=== PATIENT | male | born 1955 | race Caucasian/White ===

== ENCOUNTER → 2021-09-09 15:09 | Outpatient (BNVA) | payer OTHER, SELFPAY | PROVIDERS: Visit Provider Surgery | DX: Z86.010 Personal history of colon polyps (principal) | CPT/HCPCS: 87635 ==

== ENCOUNTER 2021-09-12 07:11 | Day surgery (SDC) | payer OTHER, SELFPAY ==
[2021-09-12 07:53] VITALS: BP 175/96; PULSE 99; RESP 18; TEMP 36.1; O2SAT 99
--- NOTE | 2021-09-12 07:54 | W.PM.OPSFHP ---
Same Day Surgery H&P Indication for Procedure/HPI DATE OF PROCEDURE: September 12, 2021 CHIEF COMPLAINT/INDICATIONFOR SURGICAL PROCEDURE: Colon polyps PREOP DIAGNOSIS: History of colon polyps PLANNED PROCEDURE: Operation Date: 09/12/21 08:30 Proposed Procedures p Colonoscopy 48570 Z86.010(Not Applicable) - Bo Saleh MD 06/13/21 This is a pleasant 66 years old gentleman with history of colon polyps removed about 5 years ago.? Patient denies bleeding per rectum or history of colon cancer and is referred to my practice for surveillance colonoscopy 09/12/21 Patient comes today for surveillance ROS All systems have been reviewed negative except as per the above or per problem list Medications/Allergies* Home Medications Medication Instructions Recorded Confirmed Type Wixela Inhub 1 inh INHALATION BID 09/09/21 09/09/21 History aspirin 325 mg tablet 325 mg PO DAILY 09/09/21 09/12/21 History diltiazem HCl 300 mg capsule,24 300 mg PO DAILY 09/09/21 09/12/21 History hr,extended release (Tiadylt ER) hydrocortisone 2.5 % topical 1 applic TOPICAL DAILY 09/09/21 09/09/21 History ointment losartan 50 mg tablet 50 mg PO DAILY 09/09/21 09/09/21 History metformin 1,000 mg tablet 1,000 mg PO BID 09/09/21 09/09/21 History montelukast 10 mg tablet 10 mg PO DAILY 09/09/21 09/09/21 History multivitamin 1 tab PO DAILY 09/09/21 09/09/21 History tramadol 50 mg tablet 50 mg PO Q6H PRN 09/09/21 09/09/21 History triamterene 37.5 1 tab PO DAILY 09/09/21 09/09/21 History mg-hydrochlorothiazide 25 mg tablet Allergies/Adverse Reactions Allergy/AdvReac Type Severity Reaction Status Date / Time Penicillins Allergy Intermediate hands Verified 09/12/21 07:55 swell, itchy Pertinent History/Comorbid Conditions* Family History (Updated 06/13/21 @ 09:37 by Kalani Farrell MA) Diabetes Lung disease Cancer Hypertension Social History Smoking and tobacco status: former smoker Pertinent Exam Findings alert, oriented x 3, regular rate & rhythm and procedure specific exam findings (Abdominal examination nontender nondistended soft) Recommendations Surgery/Procedure today (Surveillance colonoscopy) Coding Level of Care Code Acute Boat Patcher Plastic for Gilberto Patel
[2021-09-12] MEDS: sodium chloride 0.9% 1,000 ML 30 ML IV (07:57)
--- NOTE | 2021-09-12 08:14 | ANES.PREANE2 ---
Pre-Anesthetic Assessment Height/Weight: Height 1.8 m Weight 190.509 kg Temp Pulse Resp BP Pulse Ox 97.0 F L 99 18 175/96 99 09/12/21 07:53 09/12/21 07:53 09/12/21 07:53 09/12/21 07:53 09/12/21 07:53 Preop Diagnosis: History of colon polyps Operation Date: 09/12/21 08:30 Proposed Procedures p Colonoscopy 73400 Z86.010(Not Applicable) - Bo Saleh MD Familial anesthetic complications: None Was Beta Khushi taken within 24 hours: N/A Was Clonidine taken within 24 hours: N/A Last intake: Intake Last Liquid Date 09/12/21 Last Liquid Time 22:30 Last Solid Date 09/10/21 Last Solid Time 18:30 Social No alcohol and No tobacco Exam alert, oriented x 3, clear to auscultation bilaterally and regular rate & rhythm (Slightly tachy) Airway Submandibular: within normal limits Cervical ROM: within normal limits Mallampati: Class II Dentition: chipped Pulmonary Sleep Apnea CV/HEM Hypertension Metabolic Diabetes Mellitus and Morbid Obesity Anesthetic Plan ASA status: 3 Anesthesia: General Risk of > 500 ml blood loss (7ml/kg in children): No Medications/Allergies Home Medications Medication Instructions Recorded Confirmed Last Taken Type Wixela Inhub 1 inh INHALATION BID 09/09/21 09/09/21 09/10/21 History aspirin 325 mg tablet 325 mg PO DAILY 09/09/21 09/12/21 09/10/21 History diltiazem HCl 300 mg capsule,24 300 mg PO DAILY 09/09/21 09/12/21 09/10/21 History hr,extended release (Tiadylt ER) hydrocortisone 2.5 % topical 1 applic TOPICAL DAILY 09/09/21 09/09/21 09/10/21 History ointment losartan 50 mg tablet 50 mg PO DAILY 09/09/21 09/09/21 09/10/21 History metformin 1,000 mg tablet 1,000 mg PO BID 09/09/21 09/09/21 09/10/21 History montelukast 10 mg tablet 10 mg PO DAILY 09/09/21 09/09/21 09/10/21 History multivitamin 1 tab PO DAILY 09/09/21 09/09/21 09/10/21 History tramadol 50 mg tablet 50 mg PO Q6H PRN 09/09/21 09/09/21 09/10/21 History triamterene 37.5 1 tab PO DAILY 09/09/21 09/09/21 09/10/21 History mg-hydrochlorothiazide 25 mg tablet Allergies Allergy/AdvReac Type Severity Reaction Status Date / Time Penicillins Allergy Intermediate hands Verified 09/12/21 07:55 swell, itchy Current Medications Generic Name Dose Route Start Last Admin Trade Name Freq PRN Reason Stop Dose Admin Sodium Chloride 1,000 mls @ 30 mls/hr 09/12/21 07:30 09/12/21 07:57 Sodium Chloride 0.9% IV 30 mls/hr .Q24H MEHUL Administration PFSH Anesthesia Family History Other Cancer Diabetes Hypertension Lung disease Social History Smoking and tobacco status: former smoker Data Anesthesia Cardiac Studies: No Data to Display
[2021-09-12 08:40] VITALS: BP 119/66; PULSE 88; RESP 16; TEMP 36.4; O2SAT 92
[2021-09-12 08:58] VITALS: BP 126/68; PULSE 87; RESP 18; O2SAT 91
--- NOTE | 2021-09-12 12:47 | ANE.PACU2 ---
Inpatient post-anesthesia follow up: Airway intact: Yes Vital signs: Temperature 97.5 F Pulse Rate 87 Respiratory Rate 18 Blood Pressure 126/68 Pulse Oximetry 91 Oxygen Delivery Me thod Room Air Oxygen Flow Rate Fraction of Inspir ed Oxygen Hydration adequate: Yes Nausea and vomiting: No Pain level: 1 Mental status: Baseline
== END 2021-09-12 09:15 | disposition home or self-care (01) ==
PROVIDERS: PCP Family Medicine; Visit Provider Surgery
PROC: 0DJD8ZZ Inspection of Lower Intestinal Tract, Via Natural or Artificial Opening Endoscopic (ICD-10-PCS; CPT 45378; principal; 2021-09-12 08:30)
DX: Z12.11 Encounter for screening for malignant neoplasm of colon (principal); Z86.010 Personal history of colon polyps; Z79.82 Long term (current) use of aspirin; Z82.49 Family history of ischemic heart disease and other diseases of the circulatory system; Z87.891 Personal history of nicotine dependence; E11.9 Type 2 diabetes mellitus without complications; E66.01 Morbid (severe) obesity due to excess calories; Z68.43 Body mass index [BMI] 50.0-59.9, adult; Z79.84 Long term (current) use of oral hypoglycemic drugs
CPT/HCPCS: 45378; J2704; J7030

== ENCOUNTER 2022-05-13 20:00 | Outpatient (CLI) | payer OTHER, SELFPAY | END 2022-05-13 20:01 | disposition home or self-care (01) | LOC: SLEEP 05-14 07:51 | PROVIDERS: PCP Family Medicine; Visit Provider Family Medicine | DX: G47.33 Obstructive sleep apnea (adult) (pediatric) (principal) | CPT/HCPCS: 95811 ==

== ENCOUNTER → 2022-10-21 09:00 | Outpatient (BNVA) | payer OTHER, SELFPAY | PROVIDERS: PCP Family Medicine; Visit Provider Podiatrist Foot & Ankle Surgery | DX: E11.8 Type 2 diabetes mellitus with unspecified complications (principal); L60.3 Nail dystrophy; E11.42 Type 2 diabetes mellitus with diabetic polyneuropathy; M21.41 Flat foot [pes planus] (acquired), right foot; M21.42 Flat foot [pes planus] (acquired), left foot; R23.4 Changes in skin texture; Z79.84 Long term (current) use of oral hypoglycemic drugs | CPT/HCPCS: 11721; 99203 ==

== ENCOUNTER 2022-12-23 01:11 | Emergency (ER) | payer OTHER, SELFPAY ==
[2022-12-23 01:18] VITALS: BMI 50.5
[2022-12-23 01:19] VITALS: BP 146/78; PULSE 16; RESP 16; TEMP 36.4; O2SAT 95
--- NOTE | 2022-12-23 01:38 | W.ED.EXTPRO ---
HPI - Extremity Problem General: Chief complaint: Extremity Problem,Nontraumatic Stated complaint: right leg pain Time Seen by Provider: 12/23/22 01:16 History of Present Illness: 67-year-old male patient comes in today for complaints of right lower back pain radiating down the right leg to the knee. Patient reports pain has been aggravated since Thursday. Patient's been and able to rest at night. Patient has tried heat, ice, acetaminophen, and tramadol with minimal pain relief. Patient appears nontoxic. Patient appears in mild to moderate pain. Patient does have a history of chronic back pain. Patient denies any recent falls or injuries. Associated symptoms: Deny chest pain, fever(s) or rash Review of Systems General: Reports: 10 or more systems reviewed and unremarkable except in HPI and below Const: Denies: fever(s) Card: Denies: chest pain Resp: Denies: dyspnea GI: Denies: vomiting : Denies: difficulty urinating Musc: Reports: back pain Skin/Breast: Denies: rash PFSH ED PFSH: Family History Other Cancer Diabetes Hypertension Lung disease Social History Smoking and tobacco status: former smoker Physical Exam Const: COMMON NORMALS: alert HENMT: COMMON NORMALS: normocephalic HEAD & SCALP: normocephalic Neck/C-Spine: COMMON NORMALS: full ROM Resp: COMMON NORMALS: normal respiratory effort Cardio: COMMON NORMALS: regular rate and regular rhythm RATE: regular rate RHYTHM: regular rhythm Back/Pelvis: THORACIC SPINE/UPPER BACK: No thoracic spinal tenderness LUMBAR SPINE/LOWER BACK: No lumbar spinal tenderness and Yes paraspinal muscle tenderness Lumbar paraspinal muscle tenderness: right SACROILIAC JOINTS: Yes SI joint(s) abnormal SI joint details: tender to palpation (Right side) Extremity: COMMON NORMALS: normal to inspection and no pedal edema Neuro: SENSORIUM/ORIENTATION: Yes alert Skin: COMMON NORMALS: turgor normal GENERAL SKIN EXAM: turgor normal Course Vital Signs: Vital signs: Vital Signs Temperature 97.6 F 12/23/22 01:19 Pulse Rate 16 L 12/23/22 01:19 Respiratory Rate 16 12/23/22 01:19 Blood Pressure 146/78 12/23/22 01:19 Pulse Oximetry 95 12/23/22 01:19 Oxygen Delivery Me thod Room Air 12/23/22 01:19 MDM - Extremity (Nontraumatic) Medical Decision Making 67-year-old male patient comes in today for complaints of right hip pain radiating to the right thigh. Patient denies any falls or injury. Patient does have a history of chronic back pain. On exam patient has tenderness in the sacroiliac area on the right side and muscle tenderness in the lumbar area of the back. Distal pulses and sensation are intact. No pedal edema is noted. No point tenderness is noted along the spine. Differential diagnosis includes but not limited to lumbar radiculopathy, intervertebral disc disease, facet arthropathy, muscle strain. No signs of severe illness or injury is noted. Believe the patient probably has lumbar radiculopathy with sciatic pain. Patient was given a dose of dexamethasone and ketorolac in the ER. Patient will be continued on naproxen and hydrocodone at home. Patient reported understanding of care plan and need for follow-up with primary care for further evaluation and treatment. Return to the ER for new concerns or worsening symptoms. Discharge Plan Discharge Patient Disposition: Home Clinical Impression: Lumbar radiculopathy, right Condition: Stable Prescriptions: New hydrocodone-acetaminophen 10-325 mg tablet 1 tab PO BID PRN (Reason: pain (scale score 7-10)) Qty: 7 0RF naproxen 500 mg tablet 500 mg PO BID Qty: 20 0RF No Action losartan 50 mg tablet 50 mg PO DAILY diltiazem HCl [Tiadylt ER] 300 mg capsule,extended release 24 hr 300 mg PO DAILY tramadol 50 mg Tablet 50 mg PO Q6H PRN (Reason: Pain) triamterene-hydrochlorothiazid 37.5-25 mg tablet 1 tab PO DAILY montelukast 10 mg tablet 10 mg PO DAILY hydrocortisone 2.5 % ointment 1 applic TOPICAL DAILY Wixela Inhub 1 inh inhalation BID metformin 1,000 mg Tablet 1,000 mg PO BID multivitamin Tablet 1 tab PO DAILY aspirin 325 mg Tablet 325 mg PO DAILY Discharge Orders: Discharge ED (Routine); Ordered 12/23/22 Ordered By: Tai Bentley Referrals: Sydney Peralta MD [Primary Care Provider] - Patient Instructions: Lumbar Radiculopathy (ED), Opioid Safety Activity Restrictions/Additional Instructions: Try to maintain normal activity is much as possible. Take naproxen 500 mg twice daily for pain and inflammation. Use acetaminophen for further control of pain. Use hydrocodone for severe pain. Drink plenty of water with medication. Maintain normal activity is much as tolerated. Follow-up with primary care in 3 to 5 days for recheck. Return to emergency department for new concerns. Coding Level of Care Code ED Addictions Counselor Assistant for Gilberto Patel
[2022-12-23] MEDS: HYDROcodone-acetaminophen 10-325 mg Tablet 1 TAB PO (01:54)
[2022-12-23] MEDS: dexamethasone 10 mg/mL INJ IM (01:55)
[2022-12-23] MEDS: ketorolac 30 mg/mL INJ IM (01:55)
[2022-12-23 02:16] VITALS: BP 140/82; PULSE 63; RESP 20; O2SAT 96
== END 2022-12-23 02:16 | disposition home or self-care (01) ==
PROVIDERS: Emergency Provider Nurse Practitioner Family; PCP Family Medicine
DX: M54.16 Radiculopathy, lumbar region (principal); Z79.82 Long term (current) use of aspirin; Z79.84 Long term (current) use of oral hypoglycemic drugs; Z87.891 Personal history of nicotine dependence
CPT/HCPCS: 96372; 99284; J1100; J1885

== ENCOUNTER → 2023-01-20 09:47 | Outpatient (BNVA) | payer OTHER, SELFPAY | PROVIDERS: Visit Provider Podiatrist Foot & Ankle Surgery | DX: E11.8 Type 2 diabetes mellitus with unspecified complications (principal); L60.3 Nail dystrophy; L85.9 Epidermal thickening, unspecified; E11.42 Type 2 diabetes mellitus with diabetic polyneuropathy; Z79.84 Long term (current) use of oral hypoglycemic drugs; M21.41 Flat foot [pes planus] (acquired), right foot; M21.42 Flat foot [pes planus] (acquired), left foot | CPT/HCPCS: 11055; 11721; 99213 ==

== ENCOUNTER 2023-01-21 09:33 | Outpatient (RCR) | payer OTHER, SELFPAY | END 2023-02-02 23:59 | disposition home or self-care (01) | LOC: SPT 09:33 | PROVIDERS: Visit Provider Family Medicine | DX: M25.551 Pain in right hip (principal) | CPT/HCPCS: 97113; 97161 ==

== ENCOUNTER 2023-02-03 06:00 | Outpatient (RCR) | payer OTHER, SELFPAY | END 2023-03-05 23:59 | disposition home or self-care (01) | LOC: SPT 06:00 | PROVIDERS: Visit Provider Family Medicine | DX: M25.551 Pain in right hip (principal) | CPT/HCPCS: 97113 ==

== ENCOUNTER 2023-03-06 06:00 | Outpatient (RCR) | payer OTHER, SELFPAY | END 2023-04-04 23:59 | disposition home or self-care (01) | LOC: SPT 06:00 | PROVIDERS: Visit Provider Family Medicine | DX: M25.551 Pain in right hip (principal) | CPT/HCPCS: 97113 ==

== ENCOUNTER 2023-04-05 06:00 | Outpatient (RCR) | payer OTHER, SELFPAY | END 2023-04-21 23:59 | disposition home or self-care (01) | LOC: SPT 06:00 | PROVIDERS: Visit Provider Family Medicine | DX: M25.551 Pain in right hip (principal) | CPT/HCPCS: 97110; 97113 ==

== ENCOUNTER → 2023-04-28 10:44 | Outpatient (BNVA) | payer OTHER, SELFPAY | PROVIDERS: PCP Family Medicine; Visit Provider Podiatrist Foot & Ankle Surgery | DX: L60.3 Nail dystrophy (principal); E11.42 Type 2 diabetes mellitus with diabetic polyneuropathy; M21.41 Flat foot [pes planus] (acquired), right foot; M21.42 Flat foot [pes planus] (acquired), left foot; L57.0 Actinic keratosis; L81.4 Other melanin hyperpigmentation; L57.8 Other skin changes due to chronic exposure to nonionizing radiation; Z79.84 Long term (current) use of oral hypoglycemic drugs | CPT/HCPCS: 11721; 17004; 99213 ==

== ENCOUNTER → 2023-10-28 09:04 | Outpatient (BNVA) | payer OTHER, SELFPAY | PROVIDERS: PCP Family Medicine; Visit Provider Nurse Practitioner Family | DX: L57.0 Actinic keratosis (principal); D36.14 Benign neoplasm of peripheral nerves and autonomic nervous system of thorax; D22.5 Melanocytic nevi of trunk; L81.4 Other melanin hyperpigmentation; L85.3 Xerosis cutis; L57.8 Other skin changes due to chronic exposure to nonionizing radiation | CPT/HCPCS: 17000; 99213 ==

== ENCOUNTER → 2023-11-24 15:09 | Outpatient (BNVA) | payer OTHER, SELFPAY | PROVIDERS: PCP Family Medicine; Visit Provider Podiatrist Foot & Ankle Surgery | DX: L60.3 Nail dystrophy (principal); E11.42 Type 2 diabetes mellitus with diabetic polyneuropathy; M21.41 Flat foot [pes planus] (acquired), right foot; M21.42 Flat foot [pes planus] (acquired), left foot; R23.4 Changes in skin texture; L84 Corns and callosities; Z79.84 Long term (current) use of oral hypoglycemic drugs | CPT/HCPCS: 11055; 11721 ==

== ENCOUNTER → 2024-02-24 12:54 | Outpatient (BNVA) | payer OTHER, SELFPAY | PROVIDERS: PCP Family Medicine; Visit Provider Podiatrist Foot & Ankle Surgery | DX: M21.41 Flat foot [pes planus] (acquired), right foot (principal); M21.42 Flat foot [pes planus] (acquired), left foot; R23.4 Changes in skin texture; L60.3 Nail dystrophy; E11.42 Type 2 diabetes mellitus with diabetic polyneuropathy; Z79.84 Long term (current) use of oral hypoglycemic drugs | CPT/HCPCS: 11721 ==

== ENCOUNTER → 2024-05-25 13:30 | Outpatient (BNVA) | payer OTHER, SELFPAY | PROVIDERS: PCP Family Medicine; Visit Provider Podiatrist Foot & Ankle Surgery | DX: M21.41 Flat foot [pes planus] (acquired), right foot (principal); M21.42 Flat foot [pes planus] (acquired), left foot; R23.4 Changes in skin texture; L60.3 Nail dystrophy; E11.42 Type 2 diabetes mellitus with diabetic polyneuropathy; L84 Corns and callosities; Z79.84 Long term (current) use of oral hypoglycemic drugs | CPT/HCPCS: 11056; 11721 ==

== ENCOUNTER → 2024-05-27 10:45 | Outpatient (BNVA) | payer OTHER, SELFPAY | PROVIDERS: PCP Family Medicine; Visit Provider Nurse Practitioner Family | DX: D36.14 Benign neoplasm of peripheral nerves and autonomic nervous system of thorax (principal); L81.4 Other melanin hyperpigmentation; D22.5 Melanocytic nevi of trunk; L85.3 Xerosis cutis; L57.8 Other skin changes due to chronic exposure to nonionizing radiation; L71.8 Other rosacea; D48.5 Neoplasm of uncertain behavior of skin; L57.0 Actinic keratosis | CPT/HCPCS: 11102; 17000; 99214 ==

== ENCOUNTER → 2024-07-12 09:13 | Outpatient (BNVA) | payer OTHER, SELFPAY | PROVIDERS: PCP Family Medicine; Visit Provider Dermatology | DX: D48.5 Neoplasm of uncertain behavior of skin (principal); L85.3 Xerosis cutis; L81.4 Other melanin hyperpigmentation; C44.319 Basal cell carcinoma of skin of other parts of face; D04.62 Carcinoma in situ of skin of left upper limb, including shoulder; L57.0 Actinic keratosis | CPT/HCPCS: 13132; 17000; 17272; 17311; 99213 ==

== ENCOUNTER → 2024-09-06 07:56 | Outpatient (BNVA) | payer OTHER, SELFPAY | PROVIDERS: PCP Family Medicine; Visit Provider Podiatrist Foot & Ankle Surgery | DX: E11.42 Type 2 diabetes mellitus with diabetic polyneuropathy (principal); L60.3 Nail dystrophy; L84 Corns and callosities; M21.41 Flat foot [pes planus] (acquired), right foot; M21.42 Flat foot [pes planus] (acquired), left foot; R23.4 Changes in skin texture; Z79.84 Long term (current) use of oral hypoglycemic drugs | CPT/HCPCS: 11055; 11721 ==

== ENCOUNTER → 2024-10-26 13:53 | Outpatient (BNVA) | payer OTHER, SELFPAY | PROVIDERS: PCP Family Medicine; Visit Provider Nurse Practitioner Family | DX: L71.8 Other rosacea (principal); B07.8 Other viral warts; Z78.9 Other specified health status; D48.5 Neoplasm of uncertain behavior of skin; L57.0 Actinic keratosis | CPT/HCPCS: 11102; 17000; 17110; 99214 ==

== ENCOUNTER → 2024-11-23 12:41 | Outpatient (BNVA) | payer OTHER, SELFPAY | PROVIDERS: PCP Family Medicine; Visit Provider Dermatology | DX: L57.0 Actinic keratosis (principal) | CPT/HCPCS: 96573 ==

== ENCOUNTER 2024-12-11 01:09 | Emergency (ER) | payer OTHER, MEDICARE, SELFPAY ==
[2024-12-11 01:41] VITALS: BP 159/69; PULSE 70; RESP 20; TEMP 36.6; O2SAT 98; BMI 51.8
[2024-12-11] MEDS: oxyCODONE-APAP 10-325 mg Tablet 1 TAB PO (03:39)
--- NOTE | 2024-12-11 06:30 | W.ED.DENTAL ---
HPI - Dental/Oral General: Chief complaint: Dental/Oral Stated complaint: Tooth Ache Time Seen by Provider: 12/11/24 02:57 History of Present Illness: Pt with chronic tooth pain for several months, significantly worsening over the last three weeks. Recently evaluated by a dentist through [place] authorization; dentist recommended extraction, but next available appointment is in five days. Pt reports current pain is severe and not controlled by prescribed hydrocodone 5 mg or ibuprofen, despite taking both as directed. Tylenol was previously used. [facility] and is being taken as directed; pt has a sufficient supply. Pt has tried multiple adjunctive measures including warm water rinses, ice packs, clove oil, and topical application, with only temporary relief. Pain is interfering with sleep, causing frequent awakenings. No clear evidence of abscess per pt or dentist, but some concern for mild infection. Pt received an intramuscular antibiotic injection at another clinic after a tick bite, but was advised not to double up on antibiotics. No upper teeth; pain localized to right lower jaw. No mention of fever, swelling, or systemic symptoms. Pt drove self to ED and is seeking better pain control until dental extraction. Related Data Home Medications ?Medication ?Instructions ?Recorded ?Confirmed Wixela Inhub 1 inh inhalation BID 09/09/21 12/07/24 aspirin 325 mg tablet 325 mg PO DAILY 09/09/21 12/07/24 diltiazem HCl 300 mg capsule,24 300 mg PO DAILY 09/09/21 12/07/24 hr,extended release (Tiadylt ER) hydrocortisone 2.5 % topical 1 applic topical DAILY 09/09/21 12/07/24 ointment losartan 50 mg tablet 50 mg PO DAILY 09/09/21 12/07/24 metformin 1,000 mg tablet 1,000 mg PO BID 09/09/21 12/07/24 montelukast 10 mg tablet 10 mg PO DAILY 09/09/21 12/07/24 multivitamin 1 tab PO DAILY 09/09/21 12/07/24 tramadol 50 mg tablet 50 mg PO Q6H PRN Pain 09/09/21 12/07/24 triamterene 37.5 1 tab PO DAILY 09/09/21 12/07/24 mg-hydrochlorothiazide 25 mg tablet Previous Rx's ?Medication ?Instructions ?Recorded hydrocodone 10 mg-acetaminophen 1 tab PO BID PRN pain (scale score 12/23/22 325 mg tablet 7-10) #7 tabs naproxen 500 mg tablet 500 mg PO BID #20 tabs 12/23/22 diabetic socks #12 ea 05/25/24 oxycodone-acetaminophen 10 mg-325 1 tab PO TID PRN pain #20 tabs 12/11/24 mg tablet (Percocet) Allergies Allergy/AdvReac Type Severity Reaction Status Date / Time Penicillins Allergy Intermediate hands Verified 12/07/24 12:58 swell, itchy PFSH ED PFSH: Family History Other Cancer Diabetes Hypertension Lung disease Social History Smoking and tobacco/nicotine status: former use of tobacco/nicotine Physical Exam Const: COMMON NORMALS: no acute distress, patient oriented x3 and alert HENMT: COMMON NORMALS: normocephalic and atraumatic HEAD & SCALP: normocephalic and atraumatic OTHER: The obvious decay of a singular right lower molar with no adjacent abscess amenable to incision and drainage. Eye: COMMON NORMALS: Equal, round and reactive pupils present, EOMs intact bilaterally and no scleral icterus PUPIL: Yes Equal, round and reactive pupils present Resp: COMMON NORMALS: normal respiratory effort and No retractions Cardio: COMMON NORMALS: regular rate, regular rhythm and No murmurs present (Cardio) RATE: regular rate RHYTHM: regular rhythm GI: COMMON NORMALS: Normal to inspection, nondistended, normoactive bowel sounds present, Soft to palpation and non-tender PALPATION: Yes Soft to palpation Neuro: COMMON NORMALS: patient oriented x3 SENSORIUM/ORIENTATION: Yes alert Skin: COMMON NORMALS: no rashes or lesions noted GENERAL SKIN EXAM: no rashes or lesions noted Course Vital Signs: Vital signs: Vital Signs Temperature 98 F 12/11/24 01:41 Pulse Rate 70 12/11/24 01:41 Respiratory Rate 20 H 12/11/24 01:41 Blood Pressure 159/69 12/11/24 01:41 Pulse Oximetry 98 12/11/24 01:41 [facility] - Dental/Oral Medical Decision Making In summary, patient is a well-appearing 61-year-old male seen for tooth pain. He is currently taking clindamycin and has a dental appointment scheduled for 5 days from now. I will give him a course of pain medication to help sustain him until then. He shows good understanding and agrees to the plan No radiology studies performed this visit Discharge Plan Discharge Patient Disposition: Home Clinical Impression: Pain in tooth Condition: Stable Prescriptions: New oxycodone-acetaminophen [Percocet] 10-325 mg tablet 1 tab PO TID PRN (Reason: pain) Qty: 20 0RF No Action (DME) diabetic socks See Rx Instructions .Route .MEDSUPPLY Qty: 12 0RF Rx Instructions: As directed, patient would like black in color losartan 50 mg tablet 50 mg PO DAILY diltiazem HCl [Tiadylt ER] 300 mg capsule,extended release 24 hr 300 mg PO DAILY tramadol 50 mg Tablet 50 mg PO Q6H PRN (Reason: Pain) triamterene-hydrochlorothiazid 37.5-25 mg tablet 1 tab PO DAILY montelukast 10 mg tablet 10 mg PO DAILY hydrocortisone 2.5 % ointment 1 applic TOPICAL DAILY Wixela Inhub 1 inh inhalation BID metformin 1,000 mg Tablet 1,000 mg PO BID multivitamin Tablet 1 tab PO DAILY aspirin 325 mg Tablet 325 mg PO DAILY hydrocodone-acetaminophen 10-325 mg tablet 1 tab PO BID PRN (Reason: pain (scale score 7-10)) Qty: 7 0RF naproxen 500 mg tablet 500 mg PO BID Qty: 20 0RF Discharge Orders: Discharge ED (Routine); Ordered 12/11/24 Ordered By: Kurtis Lyles Referrals: Sydney Peralta MD [Primary Care Provider, Family Practice] Discharge Diet: Advance as tolerated Discharge Activity: Increase activity as tolerated Patient Instructions: Opioid Safety, Pain Management Activity Restrictions/Additional Instructions: Please continue to take the clindamycin antibiotic alongside this pain medicine. It would also be good to keep taking 600 mg ibuprofen 3 times daily for pain control. This newly prescribed Percocet can be taken safely alongside ibuprofen. Print Language: Macedonian Coding Level of Care Code ED Scrap Breaker for Gilberto Patel
== END 2024-12-11 03:39 | disposition home or self-care (01) ==
PROVIDERS: Emergency Provider Student in an Organized Health Care Education/Training Program; PCP Family Medicine
DX: K08.89 Other specified disorders of teeth and supporting structures (principal); Z79.84 Long term (current) use of oral hypoglycemic drugs; Z79.82 Long term (current) use of aspirin; Z87.891 Personal history of nicotine dependence
CPT/HCPCS: 99283; J9999

== ENCOUNTER → 2024-12-28 10:43 | Outpatient (BNVA) | payer OTHER, MEDICARE, SELFPAY | PROVIDERS: PCP Family Medicine; Visit Provider Dermatology | DX: Z57.0 Occupational exposure to noise (principal) | CPT/HCPCS: 96573 ==

== ENCOUNTER → 2025-02-27 09:04 | Outpatient (BNVA) | payer OTHER, SELFPAY | PROVIDERS: PCP Family Medicine; Visit Provider Podiatrist Foot & Ankle Surgery | DX: E11.42 Type 2 diabetes mellitus with diabetic polyneuropathy (principal); L60.3 Nail dystrophy; L84 Corns and callosities; E11.8 Type 2 diabetes mellitus with unspecified complications; M21.41 Flat foot [pes planus] (acquired), right foot; M21.42 Flat foot [pes planus] (acquired), left foot; R23.4 Changes in skin texture; Z79.84 Long term (current) use of oral hypoglycemic drugs | CPT/HCPCS: 11055; 11721 ==

== ENCOUNTER 2025-04-03 08:42 | Outpatient (RCR) | payer OTHER, SELFPAY | END 2025-04-04 23:59 | disposition home or self-care (01) | LOC: SPT 08:42 | PROVIDERS: Visit Provider Family Medicine | DX: M25.561 Pain in right knee (principal); M25.562 Pain in left knee | CPT/HCPCS: 97161 ==

== ENCOUNTER → 2025-04-26 10:28 | Outpatient (BNVA) | payer OTHER, SELFPAY | PROVIDERS: Visit Provider Nurse Practitioner Family | DX: L57.8 Other skin changes due to chronic exposure to nonionizing radiation (principal); L71.8 Other rosacea; D18.01 Hemangioma of skin and subcutaneous tissue; Z08 Encounter for follow-up examination after completed treatment for malignant neoplasm; Z85.828 Personal history of other malignant neoplasm of skin; L57.0 Actinic keratosis | CPT/HCPCS: 17000; 99214 ==